=== PATIENT | male | born 1965 | race Caucasian/White ===

== ENCOUNTER 2016-09-14 00:11 | Emergency (ER) ==
[2016-09-14 00:24] VITALS: BP 138/92; TEMP 98.6; BMI 60.7
[2016-09-14] MEDS ORDERED: DILAUDID 2 MG/ML SYRINGE IM STA (00:40)
[2016-09-14] MEDS ORDERED: PHENERGAN 25 MG/ML VIAL IM STA (00:40)
--- NOTE | 2016-09-14 00:43 | ED.PDOC ---
General ED Provider: Dr. BLANCA MOORE-ER Chief Complaint: Back Pain Stated Complaint: my back hurts--i am scheduled for an mri and to go to pain management--its not goinng down my legs Time Seen by Physician: 00:30 Mode of Arrival: Walk-In Information Source: Patient, Family Exam Limitations: No limitations Nursing and Triage Documentation Reviewed and Agree: Yes Musculoskeletal Complaint Exam - Back Pain Complaint/Exam Mechanism of Injury: Reports: No known trauma Onset/Duration: several hours Symptoms Are: Still present Timing: Constant Initial Severity: Mild Current Severity: Moderate Location: Reports: Discrete Character: Reports: Aching, Throbbing Aggravating: Reports: Movements, Lifting, Bending, Walking Alleviating: Reports: None Associated Signs and Symptoms: Denies: Swelling, Redness, Bruising, Fever, Weakness, Numbness, Tingling, Abdominal pain, Flank pain, Bladder incontinence, Bowel incontinence, Weight loss, Pain with weight bearing Related History: Reports: Previous back injury TAD Risk Factors: Reports: None AAA Risk Factors: Reports: None Cauda Equina Risk Factors: Reports: None Epidural Abcess Risk Factors: Reports: None Focal Tenderness: Yes Paraspinal Muscle Tenderness: Yes Paraspinal Muscle Spasm: No Scoliosis: No Lordosis: No Kyphosis: No SLR Test: Right Negative, Left Negative Hip Motion Testing Pain: Right Negative, Left Negative Focal Weakness: Present: None Focal Sensory Loss: Present: None Gait: Present: Normal Differential Diagnoses: Fracture, Herniated Disk, Strain, Sprain Review of Systems - Review Of Systems Constitutional: Reports: No symptoms Eyes: Reports: No symptoms Ears, Nose, Mouth, Throat: Reports: No symptoms Respiratory: Reports: No symptoms Cardiac: Reports: No symptoms GI: Reports: No symptoms : Reports: No symptoms Musculoskeletal: Reports: Back pain, Muscle pain Skin: Reports: No symptoms Neurological: Reports: No symptoms Endocrine: Reports: No symptoms Hematologic/Lymphatic: Reports: No symptoms All Other Systems: Reviewed and Negative Past Medical History - Past Medical History Previously Healthy: Yes Endocrine: Reports: Unknown Cardiovascular: Reports: Unknown Respiratory: Reports: Unknown Hematological: Reports: Unknown Gastrointestinal: Reports: Unknown Genitourinary: Reports: Unknown Neuro/Psych: Reports: Unknown Musculoskeletal: Reports: Back Pain Cancer: Reports: Unknown Other Pertinent Past Medical History: has chronic lower back pain and is scheduled to go to pain management home - Surgical History General Surgical History: Reports: Unknown - Family History Family History: Reports: Unknown - Social History Smoking Status: Never smoker Hx Substance Use: No Alcohol Screening: None - Immunizations Tetanus Shot up to Date: Yes Physical Exam - Physical Exam Appearance: Well-appearing Pain Distress: Moderate Eyes: DARREN, EOMI, Conjunctiva clear ENT: Ears normal, Nose normal, Oropharynx normal Neck: Supple Respiratory: Airway patent, Breath sounds clear, Breath sounds equal, Respirations nonlabored Cardiovascular: RRR, Pulses normal, No rub, No murmur GI/: Soft, Nontender, No masses, Bowel sounds normal, No Organomegaly Musculoskeletal: Normal strength Skin: Warm, Dry, Normal color Neurological: Sensation intact, Motor intact, Reflexes intact, Cranial nerves intact, Alert, Oriented Psychiatric: Affect appropriate Re-Evaluation - Re-Evaluation Time of Re-Evaluation: 01:30 Status: Improved Vital Signs Stable: Yes Pain Level: 1 Appearance: NAD Lungs: Clear Skin: Warm and Dry Neuro: Alert and Oriented X3 CV: RRR Critical Care Note - Critical Care Note Total Time (mins): 0 Course - Course Orders, Labs, Meds: Orders Category Date Time Status Hydromorphone HCl/Pf [Dilaudid 2 mg/ml Syringe] MEDS 09/14/16 00:40 Discontinued 2 mg IM ONCE STA Promethazine HCl [Phenergan 25 mg/ml Vial] MEDS 09/14/16 00:40 Discontinued 25 mg IM ONCE STA Medications Discontinued Medications Generic Name Dose Route Start Last Admin Trade Name Freq PRN Reason Stop Dose Admin Hydromorphone HCl 2 mg 09/14/16 00:40 09/14/16 00:49 Dilaudid 2 Mg/Ml Syringe IM 09/14/16 00:41 2 mg ONCE STA Administration Promethazine HCl 25 mg 09/14/16 00:40 09/14/16 00:49 Phenergan 25 Mg/Ml Vial IM 09/14/16 00:41 25 mg ONCE STA Administration we attempted to order ct scan and/or plain films of his back but his weight exceeded the weight of the table--i asked the [employer] service technician about getting at least a lateral with portal machine to make sure no comp fx but could not be obtained --in light of no neuro symptoms and his hx of chronic back pain we decided to abandon our attempts Vital Signs: Temp Pulse Resp BP Pulse Ox 09/14/16 00:12 98.6 F 87 24 138/92 H 97 Departure - Departure Time of Disposition: 00:43 Disposition: HOME SELF-CARE Discharge Problem: Chronic back pain, Backache Instructions: Chronic Back Pain (ED) Condition: Fair Pt referred to PMD for follow-up: Yes Additional Instructions: f/u pcp Allergies/Adverse Reactions: Allergies butorphanol tartrate [From Stadol] Adverse Reaction (Intermediate, Verified 00:21) Hives ketorolac tromethamine [From Toradol] Adverse Reaction (Intermediate, Verified 09/14/16 00:21) Hives morphine Adverse Reaction (Intermediate, Verified 09/14/16 00:21) Hives nalbuphine HCl [From Nubain] Adverse Reaction (Intermediate, Verified 09/14/16 00:21) Hives orphenadrine citrate [From Norflex] Adverse Reaction (Intermediate, Verified 00:21) Hives diazepam [From Valium] Adverse Reaction (Verified 09/14/16 00:21) GETS AGRESSIVE Home Medications: Ambulatory Orders Allopurinol [Zyloprim] 300 mg PO DAILY 08/25/12 Atorvastatin Calcium [Lipitor] 40 mg PO BEDTIME 08/25/12 Citalopram Hydrobromide [Celexa] 20 mg PO DAILY 08/25/12 Hydromorphone HCl [Dilaudid] 4 mg PO Q6H PRN 08/25/12 Krill Oil/[place]-3/Dha/Epa [Fish Oil with Krill Softgel] 1 each PO DAILY Lisinopril [Zestril] 20 mg PO DAILY 08/25/12 Metformin HCl [Glucophage] 1,000 mg PO BID 08/25/12 Multivit with Minerals/Herbs [Men's Biomultiple Tablet] 1 tab PO DAILY 08/25/12 Cyclobenzaprine HCl [Flexeril] 10 mg PO BID PRN 09/14/16 Glipizide [Glucotrol] 10 mg PO BID 09/14/16 Ranitidine HCl [Zantac] 150 mg PO BIDAC 09/14/16 Disposition Discussed With: Patient, Family
== END 2016-09-14 01:15 | disposition home or self-care (01) ==
LOC: ED 00:11
DX: M54.9 Dorsalgia, unspecified (principal); G89.29 Other chronic pain
CPT/HCPCS: 96372; 99282

== ENCOUNTER 2016-12-07 00:10 | Emergency (ER) ==
[2016-12-07] MEDS ORDERED: ZOFRAN 4 MG/2 ML IM STA (00:13)
[2016-12-07] MEDS ORDERED: DILAUDID 2 MG/ML SYRINGE IM STA (00:13)
--- NOTE | 2016-12-07 00:17 | ED.PDOC ---
General ED Provider: Dr. BLANCA MOORE-ER Chief Complaint: Back Pain Stated Complaint: my back hurts--im getting ready to see a pain managment doctor Time Seen by Physician: 00:15 Mode of Arrival: Walk-In Information Source: Patient, Family Exam Limitations: Physical impairment Nursing and Triage Documentation Reviewed and Agree: Yes Musculoskeletal Complaint Exam - Back Pain Complaint/Exam Mechanism of Injury: Reports: No known trauma Onset/Duration: several mos Symptoms Are: Still present Timing: Intermittent Initial Severity: Mild Current Severity: Moderate Location: Reports: Discrete Character: Reports: Dull, Aching, Throbbing, Spasmodic, Stiffness Aggravating: Reports: Movements, Lifting, Bending, Walking Alleviating: Reports: None Associated Signs and Symptoms: Denies: Swelling, Redness, Bruising, Fever, Weakness, Numbness, Tingling, Abdominal pain, Flank pain, Bladder incontinence, Bowel incontinence, Weight loss, Pain with weight bearing Related History: Reports: Previous back injury TAD Risk Factors: Reports: None AAA Risk Factors: Reports: None Cauda Equina Risk Factors: Reports: None Epidural Abcess Risk Factors: Reports: None Focal Tenderness: Yes Paraspinal Muscle Tenderness: Yes Paraspinal Muscle Spasm: No Scoliosis: No Lordosis: No Kyphosis: No SLR Test: Right Negative, Left Negative Hip Motion Testing Pain: Right Negative, Left Negative Focal Weakness: Present: None Focal Sensory Loss: Present: None Gait: Present: Abnormal Differential Diagnoses: Arthritis, Fracture, Herniated Disk, Strain, Sprain Review of Systems - Review Of Systems Constitutional: Reports: No symptoms Eyes: Reports: No symptoms Ears, Nose, Mouth, Throat: Reports: No symptoms Respiratory: Reports: No symptoms Cardiac: Reports: No symptoms GI: Reports: No symptoms : Reports: No symptoms Musculoskeletal: Reports: Back pain Skin: Reports: No symptoms Neurological: Reports: No symptoms Endocrine: Reports: No symptoms Hematologic/Lymphatic: Reports: No symptoms All Other Systems: Reviewed and Negative Past Medical History - Past Medical History Previously Healthy: Yes Endocrine: Reports: Unknown Cardiovascular: Reports: Unknown Respiratory: Reports: Unknown Hematological: Reports: Unknown Gastrointestinal: Reports: Unknown Genitourinary: Reports: Unknown Neuro/Psych: Reports: Unknown Musculoskeletal: Reports: Back Pain Cancer: Reports: Unknown Other Pertinent Past Medical History: has chronic lower back pain and is scheduled to go to pain management home - Surgical History General Surgical History: Reports: Unknown - Family History Family History: Reports: Unknown - Social History Smoking Status: Never smoker Hx Substance Use: No Alcohol Screening: None Physical Exam - Physical Exam Appearance: Well-appearing, No pain distress, Well-nourished Pain Distress: Moderate Eyes: DARREN, EOMI, Conjunctiva clear ENT: Ears normal, Nose normal, Oropharynx normal Neck: Supple Respiratory: Airway patent, Breath sounds clear, Breath sounds equal, Respirations nonlabored Cardiovascular: RRR GI/: Soft Musculoskeletal: Limited ROM Skin: Warm Neurological: Sensation intact Psychiatric: Affect appropriate Interpretation - Radiology Interpretation Radiology Interpretation By: Radiologist Radiology Results: Negative Exam Interpreted: CT Scan Critical Care Note - Critical Care Note Total Time (mins): 0 Course - Course Orders, Labs, Meds: Orders Category Date Time Status Hydromorphone HCl/Pf [Dilaudid 2 mg/ml Syringe] MEDS 12/07/16 00:13 Discontinued 2 mg IM ONCE STA Ondansetron HCl/Pf [Zofran 4 mg/2 ml] MEDS 12/07/16 00:13 Discontinued 4 mg IM ONCE STA CT LUMBAR SPINE W/O CONTRAST Stat RADS 12/07/16 00:14 Completed Medications Discontinued Medications Generic Name Dose Route Start Last Admin Trade Name Freq PRN Reason Stop Dose Admin Hydromorphone HCl 2 mg 12/07/16 00:13 12/07/16 00:35 Dilaudid 2 Mg/Ml Syringe IM 12/07/16 00:14 2 mg ONCE STA Administration Ondansetron HCl 4 mg 12/07/16 00:13 12/07/16 00:36 Zofran 4 Mg/2 Ml IM 12/07/16 00:14 4 mg ONCE STA Administration Vital Signs: Temp Pulse Resp BP Pulse Ox 12/07/16 00:11 96.3 F L 86 20 126/58 L 97 Departure - Departure Time of Disposition: 01:42 Disposition: HOME SELF-CARE Discharge Problem: Degenerative disc disease Qualifiers: Spinal region: lumbar Qualified Code(s): M51.36 - Other intervertebral disc degeneration, lumbar region Instructions: Chronic Back Pain (ED) Condition: Good Pt referred to PMD for follow-up: Yes Additional Instructions: f/ui pcp Allergies/Adverse Reactions: Allergies butorphanol tartrate [From Stadol] Adverse Reaction (Intermediate, Verified 00:21) Hives ketorolac tromethamine [From Toradol] Adverse Reaction (Intermediate, Verified 12/07/16 00:21) Hives morphine Adverse Reaction (Intermediate, Verified 12/07/16 00:21) Hives nalbuphine HCl [From Nubain] Adverse Reaction (Intermediate, Verified 12/07/16 00:21) Hives orphenadrine citrate [From Norflex] Adverse Reaction (Intermediate, Verified 00:21) Hives diazepam [From Valium] Adverse Reaction (Verified 12/07/16 00:21) GETS AGRESSIVE Home Medications: Ambulatory Orders Allopurinol [Zyloprim] 300 mg PO DAILY 08/25/12 Atorvastatin Calcium [Lipitor] 40 mg PO BEDTIME 08/25/12 Citalopram Hydrobromide [Celexa] 20 mg PO DAILY 08/25/12 Hydromorphone HCl [Dilaudid] 4 mg PO Q6H PRN 08/25/12 Krill Oil/[place]-3/Dha/Epa [Fish Oil with Krill Softgel] 1 each PO DAILY Lisinopril [Zestril] 20 mg PO DAILY 08/25/12 Metformin HCl [Glucophage] 1,000 mg PO BID 08/25/12 Multivit with Minerals/Herbs [Men's Biomultiple Tablet] 1 tab PO DAILY 08/25/12 Cyclobenzaprine HCl [Flexeril] 10 mg PO BID PRN 09/14/16 Glipizide [Glucotrol] 10 mg PO BID 09/14/16 Ranitidine HCl [Zantac] 150 mg PO BIDAC 09/14/16 Disposition Discussed With: Patient
[2016-12-07 00:31] VITALS: BP 126/58; TEMP 96.3; BMI 60.7
--- NOTE | 2016-12-07 01:31 | CT ---
EXAM: CT lumbar spine without intravenous contrast 12/07/2016. Sagittal and coronal reformatted lori ges obtained HISTORY: Lower back pain COMPARISON: 08/25/2012 FINDINGS: Anatomic detail degraded due to body habitus. A normal lumbar lordosis is maintained. Vertebral bodies appear intact without fracture. The facet joints align normally. Transitional anatomy is present at the lumbar sacral junction. Bilateral L5-S1 pseudoarticulation. Multilevel posterior disc bulge flattening the thecal sac. This is most severe at the lower lumbar le vels. Posterior disc bulge causes triangulation of the spinal canal at L2-L3 and L3-L4. This appear s slightly more severe at L4-L5. There is mild bilateral L4-L5 neural foraminal stenosis. At the level of L5-S1 there is prominent right paracentral osteophyte formation which appears to caus e lateral recess and neural foraminal stenosis. The spinal canal is not well characterized. IMPRESSION: 1. Degraded anatomic detail due to body habitus. 2. No acute osseous abnormality. 3. Transitional anatomy at the lumbosacral junction. Bilateral L5-S1 pseudoarticulation. 4. Degenerative disc disease as discussed above. Further evaluation may be obtained as clinically i ndicated.
== END 2016-12-07 01:46 | disposition home or self-care (01) ==
LOC: ED 00:10
DX: M51.36 Other intervertebral disc degeneration, lumbar region (principal); M54.5 Low back pain; G89.29 Other chronic pain
CPT/HCPCS: 96372; 99282

== ENCOUNTER 2017-06-18 19:52 | Emergency (ER) ==
[2017-06-18 19:52] VITALS: BMI 60.7
[2017-06-18 20:01] VITALS: BP 170/90; TEMP 99.5
[2017-06-18] MEDS ORDERED: MORPHINE 4 MG/ML SYRINGE IM STA (20:01)
[2017-06-18] MEDS ORDERED: PHENERGAN 25 MG/ML VIAL IM STA (20:01)
--- NOTE | 2017-06-18 20:03 | ED.PDOC ---
General ED Provider: Dr. BLANCA MOORE-ER Chief Complaint: Back Pain Stated Complaint: my back is bad--i am getting a pain pump next month Time Seen by Physician: 20:02 Mode of Arrival: Walk-In Information Source: Patient Exam Limitations: No limitations Nursing and Triage Documentation Reviewed and Agree: Yes Reviewed sepsis parameters & appropriate labs ordered?: Yes System Inflammatory Response Syndrome: Not Applicable Sepsis Protocol: For patient's 13 years and over: Temp is 96.8 and below OR 101 and greater Pulse >90 BPM Resp >20/minute Acutely Altered Mental Status Are patient's symptoms suggestive of a new infection, such as: -Pneumonia -Skin, Soft Tissue -Endocarditis -UTI -Bone, Joint Infection -Implantable Device -Acute Abdominal Infection -Wound Infection -Meningitis -Blood Stream Catheter Infection -Unknown Musculoskeletal Complaint Exam - Back Pain Complaint/Exam Mechanism of Injury: Reports: No known trauma Onset/Duration: several weeks Symptoms Are: Still present Timing: Constant Initial Severity: Mild Current Severity: Moderate Location: Reports: Discrete Character: Reports: Aching, Throbbing, Spasmodic, Stiffness, Burning Aggravating: Reports: Movements, Lifting, Bending, Walking Alleviating: Reports: None Associated Signs and Symptoms: Denies: Swelling, Redness, Bruising, Fever, Weakness, Numbness, Tingling, Abdominal pain, Flank pain, Bladder incontinence, Bowel incontinence, Weight loss, Pain with weight bearing Related Surgical History: Reports: None Focal Tenderness: Yes Paraspinal Muscle Tenderness: Yes Paraspinal Muscle Spasm: No Scoliosis: No Lordosis: No Kyphosis: No SLR Test: Right Negative, Left Negative Hip Motion Testing Pain: Right Negative, Left Negative Focal Weakness: Present: None Focal Sensory Loss: Present: None Gait: Present: Normal Differential Diagnoses: Arthritis, Herniated Disk, Strain, Sprain Review of Systems - Review Of Systems Constitutional: Reports: No symptoms Eyes: Reports: No symptoms Ears, Nose, Mouth, Throat: Reports: No symptoms Respiratory: Reports: No symptoms Cardiac: Reports: No symptoms GI: Reports: No symptoms : Reports: No symptoms Musculoskeletal: Reports: Back pain Skin: Reports: No symptoms Neurological: Reports: No symptoms Endocrine: Reports: No symptoms Hematologic/Lymphatic: Reports: No symptoms All Other Systems: Reviewed and Negative Past Medical History - Past Medical History Previously Healthy: Yes Endocrine: Reports: Unknown Cardiovascular: Reports: Unknown Respiratory: Reports: Unknown Hematological: Reports: Unknown Gastrointestinal: Reports: Unknown Genitourinary: Reports: Unknown Neuro/Psych: Reports: Unknown Musculoskeletal: Reports: Back Pain Cancer: Reports: Unknown Other Pertinent Past Medical History: has chronic lower back pain and is scheduled to go to pain management home - Surgical History General Surgical History: Reports: Unknown - Family History Family History: Reports: Unknown - Social History Smoking Status: Never smoker Hx Substance Use: No Alcohol Screening: None - Immunizations Tetanus Shot up to Date: Yes Physical Exam - Physical Exam Appearance: Well-appearing, No pain distress, Well-nourished Pain Distress: Mild Eyes: DARREN, EOMI, Conjunctiva clear ENT: Ears normal Neck: Supple Respiratory: Airway patent, Breath sounds clear, Breath sounds equal, Respirations nonlabored Cardiovascular: RRR, Pulses normal, No rub, No murmur GI/: Soft, Nontender, No masses, Bowel sounds normal, No Organomegaly Musculoskeletal: Limited ROM Skin: Warm, Dry, Normal color Neurological: Sensation intact, Motor intact, Reflexes intact, Cranial nerves intact, Alert, Oriented Psychiatric: Affect appropriate, Mood appropriate Re-Evaluation - Re-Evaluation Time of Re-Evaluation: 20:30 Status: Improved Vital Signs Stable: Yes Pain Level: 1 Appearance: NAD Lungs: Clear Skin: Warm and Dry Neuro: Alert and Oriented X3 CV: RRR Critical Care Note - Critical Care Note Total Time (mins): 0 Course - Course Orders, Labs, Meds: Orders Category Date Time Status Morphine Sulfate [Morphine 4 mg/ml Syringe] MEDS 06/18/17 20:01 Discontinued 4 mg IM ONCE STA Promethazine HCl [Phenergan 25 mg/ml Vial] MEDS 06/18/17 20:01 Discontinued 25 mg IM ONCE STA Medications Discontinued Medications Generic Name Dose Route Start Last Admin Trade Name Freq PRN Reason Stop Dose Admin Morphine Sulfate 4 mg 06/18/17 20:01 Morphine 4 Mg/Ml Syringe IM 06/18/17 20:02 ONCE STA Promethazine HCl 25 mg 06/18/17 20:01 Phenergan 25 Mg/Ml Vial IM 06/18/17 20:02 ONCE STA Vital Signs: Temp Pulse Resp BP Pulse Ox 06/18/17 19:53 99.5 F 92 H 18 170/90 H 96 Departure - Departure Time of Disposition: 20:05 Disposition: HOME SELF-CARE Discharge Problem: Chronic low back pain Qualifiers: Back pain laterality: midline Sciatica presence: without sciatica Qualified Code(s): M54.5 - Low back pain; G89.29 - Other chronic pain Instructions: Chronic Back Pain (ED) Condition: Good Pt referred to PMD for follow-up: Yes IPMP verified?: No Additional Instructions: f/u with pcp Allergies/Adverse Reactions: Allergies butorphanol tartrate [From Stadol] Adverse Reaction (Intermediate, Verified 06/02 19:58) Hives ketorolac tromethamine [From Toradol] Adverse Reaction (Intermediate, Verified 06/18/17 19:58) Hives nalbuphine HCl [From Nubain] Adverse Reaction (Intermediate, Verified 06/18/17 19:58) Hives orphenadrine citrate [From Norflex] Adverse Reaction (Intermediate, Verified 06/02 19:58) Hives diazepam [From Valium] Adverse Reaction (Verified 06/18/17 19:58) GETS AGRESSIVE Home Medications: Ambulatory Orders Allopurinol [Zyloprim] 300 mg PO DAILY 08/25/12 Atorvastatin Calcium [Lipitor] 40 mg PO BEDTIME 08/25/12 Citalopram Hydrobromide [Celexa] 20 mg PO DAILY 08/25/12 Hydromorphone HCl [Dilaudid] 4 mg PO Q6H PRN 08/25/12 Krill Oil/[place]-3/Dha/Epa [Fish Oil with Krill Softgel] 1 each PO DAILY Lisinopril [Zestril] 20 mg PO DAILY 08/25/12 Metformin HCl [Glucophage] 1,000 mg PO BID 08/25/12 Multivit with Minerals/Herbs [Men's Biomultiple Tablet] 1 tab PO DAILY 08/25/12 Cyclobenzaprine HCl [Flexeril] 10 mg PO BID PRN 09/14/16 Glipizide [Glucotrol] 10 mg PO BID 09/14/16 Ranitidine HCl [Zantac] 150 mg PO BIDAC 09/14/16 Disposition Discussed With: Patient, Family
== END 2017-06-18 20:37 | disposition home or self-care (01) ==
LOC: ED 19:52
DX: M54.5 Low back pain (principal); G89.29 Other chronic pain
CPT/HCPCS: 96372; 99282

== ENCOUNTER 2018-05-21 21:56 | Emergency (ER) ==
[2018-05-21 22:04] VITALS: BP 180/98; TEMP 99.5; BMI 60.0
[2018-05-21] MEDS ORDERED: DILAUDID 1 MG/ML SYRINGE IM STA (22:14)
[2018-05-21] MEDS ORDERED: PHENERGAN 25 MG/ML VIAL IM STA (22:15)
--- NOTE | 2018-05-21 22:48 | ED.PDOC ---
General ED Provider: Dr. BLANCA MOORE-ER Chief Complaint: Back Pain Stated Complaint: my back always hurt but its worse tonight cause i have been riding in a car Time Seen by Physician: 21:55 Mode of Arrival: Walk-In Information Source: Patient Exam Limitations: No limitations Nursing and Triage Documentation Reviewed and Agree: Yes Does patient meet sepsis criteria?: No System Inflammatory Response Syndrome: Not Applicable Sepsis Protocol: For patient's 13 years and over: Temp is 96.8 and below OR 101 and greater Pulse >90 BPM Resp >20/minute Acutely Altered Mental Status Are patient's symptoms suggestive of a new infection, such as: -Pneumonia -Skin, Soft Tissue -Endocarditis -UTI -Bone, Joint Infection -Implantable Device -Acute Abdominal Infection -Wound Infection -Meningitis -Blood Stream Catheter Infection -Unknown Musculoskeletal Complaint Exam - Back Pain Complaint/Exam Mechanism of Injury: Reports: No known trauma Onset/Duration: several hours Symptoms Are: Still present Timing: Constant Initial Severity: Mild Current Severity: Mild Location: Reports: Discrete Character: Reports: Dull, Aching, Spasmodic, Stiffness Aggravating: Reports: Movements, Lifting, Bending, Walking Epidural Abcess Risk Factors: Reports: None Focal Tenderness: Yes Paraspinal Muscle Tenderness: Yes Paraspinal Muscle Spasm: No Scoliosis: No Lordosis: No Kyphosis: No SLR Test: Right Negative, Left Negative Hip Motion Testing Pain: Right Negative, Left Negative Focal Weakness: Present: None Focal Sensory Loss: Present: None Gait: Present: Abnormal Differential Diagnoses: Strain, Sprain Review of Systems - Review Of Systems Constitutional: Reports: No symptoms Eyes: Reports: No symptoms Ears, Nose, Mouth, Throat: Reports: No symptoms Respiratory: Reports: No symptoms Cardiac: Reports: No symptoms GI: Reports: No symptoms : Reports: No symptoms Musculoskeletal: Reports: Back pain Skin: Reports: No symptoms Neurological: Reports: No symptoms Endocrine: Reports: No symptoms Hematologic/Lymphatic: Reports: No symptoms All Other Systems: Reviewed and Negative Past Medical History - Past Medical History Previously Healthy: Yes Endocrine: Reports: Unknown Cardiovascular: Reports: Unknown Respiratory: Reports: Unknown Hematological: Reports: Unknown Gastrointestinal: Reports: Unknown Genitourinary: Reports: Unknown Neuro/Psych: Reports: Unknown Musculoskeletal: Reports: Back Pain Cancer: Reports: Unknown Other Pertinent Past Medical History: has chronic lower back pain and is scheduled to go to pain management home - Surgical History General Surgical History: Reports: Unknown - Family History Family History: Reports: Unknown - Social History Smoking Status: Never smoker Hx Substance Use: No Alcohol Screening: Occasionally - Immunizations Tetanus Shot up to Date: Yes Physical Exam - Physical Exam Appearance: Well-appearing, No pain distress, Well-nourished Eyes: DARREN, EOMI, Conjunctiva clear ENT: Ears normal, Nose normal, Oropharynx normal Neck: Supple Respiratory: Airway patent, Breath sounds clear, Breath sounds equal, Respirations nonlabored Cardiovascular: RRR, Pulses normal, No rub, No murmur GI/: Soft, Nontender, No masses, Bowel sounds normal, No Organomegaly Musculoskeletal: Limited ROM Skin: Warm, Dry, Normal color Neurological: Sensation intact Psychiatric: Affect appropriate, Mood appropriate Interpretation - Radiology Interpretation Radiology Interpretation By: ED Physician Radiology Results: Negative Critical Care Note - Critical Care Note Total Time (mins): 0 Course - Course Orders, Labs, Meds: Orders Category Date Time Status Hydromorphone HCl [Dilaudid 1 mg/ml Syringe] MEDS 05/21/18 22:14 Discontinued 2 mg IM ONCE STA Promethazine HCl [Phenergan 25 mg/ml Vial] MEDS 05/21/18 22:15 Discontinued 25 mg IM ONCE STA LUMBAR SPINE, 2 OR 3 VIEWS Stat RADS 05/21/18 22:26 Ordered LUMBAR SPINE, MIN 4 VIEWS Stat RADS 05/21/18 22:13 Stop Req Medications Discontinued Medications Generic Name Dose Route Start Last Admin Trade Name Freq PRN Reason Stop Dose Admin Hydromorphone HCl 2 mg 05/21/18 22:14 05/21/18 22:30 Dilaudid 1 Mg/Ml Syringe IM 05/21/18 22:15 2 mg ONCE STA Administration Promethazine HCl 25 mg 05/21/18 22:15 05/21/18 22:35 Phenergan 25 Mg/Ml Vial IM 05/21/18 22:16 25 mg ONCE STA Administration Vital Signs: Temp Pulse Resp BP Pulse Ox 05/21/18 21:57 99.5 F 99 H 28 H 180/98 H 96 Departure - Departure Time of Disposition: 22:48 Disposition: HOME SELF-CARE Discharge Problem: Low back pain Qualifiers: Chronicity: acute Back pain laterality: unspecified Sciatica presence: without sciatica Qualified Code(s): M54.5 - Low back pain Instructions: Acute Low Back Pain (ED) Condition: Good Pt referred to PMD for follow-up: No IPMP verified?: No Allergies/Adverse Reactions: Allergies butorphanol tartrate [From Stadol] Adverse Reaction (Intermediate, Verified 06/02 19:58) Hives ketorolac tromethamine [From Toradol] Adverse Reaction (Intermediate, Verified 06/18/17 19:58) Hives nalbuphine HCl [From Nubain] Adverse Reaction (Intermediate, Verified 06/18/17 19:58) Hives orphenadrine citrate [From Norflex] Adverse Reaction (Intermediate, Verified 06/02 19:58) Hives diazepam [From Valium] Adverse Reaction (Verified 06/18/17 19:58) GETS AGRESSIVE fentanyl Adverse Reaction (Verified 05/21/18 22:04) Hives NSAIDS (Non-Steroidal Anti-Inflamma Adverse Reaction (Verified 05/21/18 22:05) Rash Home Medications: Ambulatory Orders Allopurinol [Zyloprim] 300 mg PO DAILY 08/25/12 Atorvastatin Calcium [Lipitor] 40 mg PO BEDTIME 08/25/12 Citalopram Hydrobromide [Celexa] 20 mg PO DAILY 08/25/12 Krill Oil/[place]-3/Dha/Epa [Fish Oil with Krill Softgel] 1 each PO DAILY Lisinopril [Zestril] 20 mg PO DAILY 08/25/12 Metformin HCl [Glucophage] 1,000 mg PO BID 08/25/12 Multivit with Minerals/Herbs [Men's Biomultiple Tablet] 1 tab PO DAILY 08/25/12 Cyclobenzaprine HCl [Flexeril] 10 mg PO BID PRN 09/14/16 Glipizide [Glucotrol] 10 mg PO BID 09/14/16 Ranitidine HCl [Zantac] 150 mg PO BIDAC 09/14/16 Disposition Discussed With: Patient, Family
--- NOTE | 2018-05-21 23:37 | DI ---
EXAM: Two-view lumbar spine. HISTORY: Low back pain. No history of trauma. FINDINGS: There is mild levoscoliosis of the lumbar spine. There is normal alignment of the lumbar v ertebral bodies and facets. The vertebral body heights and intervertebral disc spaces are maintained . Impression: No evidence of fracture. Mild levoscoliosis of the lumbar spine.
== END 2018-05-21 23:10 | disposition home or self-care (01) ==
LOC: ED 21:56
DX: M54.5 Low back pain (principal)
CPT/HCPCS: 96372; 99282